=== PATIENT | female | born 1985 | race Caucasian/White ===

== ENCOUNTER 2018-09-12 11:01 | Emergency (ER) | payer SELFPAY ==
[~2018-09-12] VITALS: Ht 167.6 cm; Wt 66.0 kg
[2018-09-12] MEDS ORDERED: KETOROLAC 60MG/2ML VIAL IM ONE (11:45)
[2018-09-12 14:00] VITALS: BP 113/75
== END 2018-09-12 14:14 | disposition home or self-care (01) ==
LOC: ER 11:43
DX: S93.492A Sprain of other ligament of left ankle, initial encounter (principal); S60.221A Contusion of right hand, initial encounter; S33.5XXA Sprain of ligaments of lumbar spine, initial encounter; F17.210 Nicotine dependence, cigarettes, uncomplicated; W11.XXXA Fall on and from ladder, initial encounter; Y93.89 Activity, other specified; Y92.59 Other trade areas as the place of occurrence of the external cause
CPT/HCPCS: 72100; 73110; 73130; 73600; 81025; 96372; 99283; J1885